=== PATIENT | female | born 1965 | race Asian ===

== ENCOUNTER → 2017-05-12 | Outpatient (CLI) | payer OTHER | LOC: CIMAGING 09:41 | PROVIDERS: ATTEND Internal Medicine | DX: Z12.31 Encounter for screening mammogram for malignant neoplasm of breast (principal); R92.2 Inconclusive mammogram | CPT/HCPCS: G0202 ==

== ENCOUNTER → 2017-06-04 | Outpatient (CLI) | payer OTHER | LOC: CIMAGING 13:21 | PROVIDERS: ATTEND Internal Medicine | DX: N60.12 Diffuse cystic mastopathy of left breast (principal) | CPT/HCPCS: 76641-PO; G0206 ==

== ENCOUNTER → 2018-07-09 | Outpatient (CLI) | payer OTHER | LOC: CIMAGING 09:49 | PROVIDERS: ATTEND Internal Medicine | DX: Z12.31 Encounter for screening mammogram for malignant neoplasm of breast (principal); R92.2 Inconclusive mammogram ==

== ENCOUNTER → 2018-07-30 | Outpatient (CLI) | payer OTHER | LOC: FIMAGING 10:53 | PROVIDERS: ATTEND Nurse Practitioner Women's Health | DX: N60.01 Solitary cyst of right breast (principal) ==